=== PATIENT | male | born 1980 | race Caucasian/White ===

== ENCOUNTER 2022-04-07 21:50 | Emergency (ER) | payer OTHER, MEDICAID, SELFPAY ==
[2022-04-07 22:05] VITALS: BP 112/66; PULSE 125; RESP 20; TEMP 37.1; O2SAT 97
--- NOTE | 2022-04-07 22:41 | DI.RAD.S_ITS ---
PROCEDURE: XR CHEST 1V INDICATIONS: suspected sepsis TECHNIQUE: One view of the chest was acquired. COMPARISON: None. FINDINGS: Surgical changes and devices: None. Lungs and pleura: There are few linear opacities in the lung bases likely representing atelectasis. No definite focal consolidation. No pleural effusions or pneumothorax. Mediastinum: Mediastinal contours appear normal. Heart size is normal. Bones and chest wall: No suspicious bony lesions. Overlying soft tissues appear unremarkable. IMPRESSION: 1. Probable mild atelectasis in the lung bases. No definite acute cardiopulmonary disease. Dictated by: Eligio Garcia M.D. on 04/07/2022 at 23:45 Approved by: Eliigo Garcia M.D. on 04/07/2022 at 23:46
[2022-04-07 22:50] LABS: INR 1.4 (0.9-1.3); Prothrombin Time 15.4 SECONDS (10.1-12.7)
[2022-04-07 22:53] LABS: Add Manual Diff / Slide Review NO; Basophils Absolute Auto 0 /uL (0-100); Basophils Percent Auto 0.3 % (0-2); Eosinophils Absolute Auto 0 /uL (0-450); Eosinophils Percent Auto 0.2 % (2-4); Hemoglobin 11.1 g/dL (13.5-17.5); Lymphocytes Absolute Auto 2300 /uL (1100-4500); Lymphocytes Percent Auto 14.3 % (25-40); Mean Corpuscular HGB Conc 33.6 % (30-36); Mean Corpuscular Volume 86.2 fL (80-100); Monocytes Absolute Auto 1400 /uL (0-900); Monocytes Percent Auto 8.9 % (3-14); Neutrophils Absolute Auto 12400 /uL (1500-7000); Neutrophils Percent Auto 76.3 % (50-75); Platelet Count 478 X10^3/uL (150-400); Red Blood Cell Count 3.83 X10^6/uL (4.5-5.9); Red Cell Distribution Width 16.8 % (11.6-14.8); White Blood Cell Count 16.3 X10^3/uL (4.5-11.0)
[2022-04-07 22:54] LABS: Alanine Aminotransferase 14 IU/L (<50); Albumin Globulin Ratio 0.7 (1.0-2.8); Alkaline Phosphatase 72 U/L (38-126); Aspartate Aminotransferase 24 IU/L (17-59); BUN Creatinine Ratio 8.5 (6-22); Bilirubin Total 0.8 mg/dL (0.2-1.3); Blood Urea Nitrogen 16 mg/dL (9-20); Calcium 9.6 mg/dL (8.4-10.2); Carbon Dioxide 22 mmol/L (22-32); Chloride 101 mmol/L (98-107); Estimated Glomerular Filt Rate 45 mL/min (>60); Globulin 5.5 g/dL (1.7-4.1); Glucose 118 mg/dL (70-100); HEMOLYSIS < 15 (0-50); Lipase 266 U/L (23-300); Potassium 4.3 mmol/L (3.4-5.1); Sodium 133 mmol/L (137-145); Total Protein 9.5 g/dL (6.3-8.2)
[2022-04-07 22:55] LABS: Lactate (Lactic Acid) 1.1 mmol/L (0.7-2.1)
[2022-04-07 23:02] LABS: PTT Partial Thromboplastin Tim 19 SECONDS (26.4-36.2)
[2022-04-07 23:38] VITALS: PULSE 109; O2SAT 98
[2022-04-07 23:39] VITALS: BP 115/70; PULSE 108; O2SAT 99
[2022-04-07] MEDS: SODIUM CHLORIDE 0.9% 1,000 ML 1000 ML IV (23:41)
[2022-04-08] VITALS (20 sets, daily range): BP systolic 102–121; BP diastolic 57–69; PULSE 83–116; RESP 18; O2SAT 95–100
--- NOTE | 2022-04-08 00:04 | DI.CT.S_ITS ---
PROCEDURE: CT ABDOMEN PELVIS W CON INDICATIONS: IV contrast only/abdominal pain TECHNIQUE: After administration of intravenous contrast, axial sections acquired from the lung bases to the pubic symphysis. Coronal and sagittal reformats were performed. For radiation dose reduction, the following was used: automated exposure control, adjustment of mA and/or kV according to patient size. COMPARISON: None. FINDINGS: Image quality: Excellent. Lung bases: Bibasilar atelectasis. Small hiatal hernia. Heart: No significant findings. ABDOMEN: Liver: Normal size. Mild hepatic steatosis. Gallbladder: Unremarkable. Biliary ducts: Unremarkable. Pancreas: Unremarkable. Spleen: Unremarkable. Adrenal Glands: Unremarkable. Kidneys and Ureters: Normal size and symmetrical enhancement. Bilateral moderate and hydroureter, slightly more pronounced on the right side. No renal stones. Stomach and Bowel: There are sigmoid diverticula. There is focal short segmental marked thickening and pericolonic stranding in the distal sigmoid colon, most likely secondary to acute diverticulitis. There is a small extraluminal air and fluid collection superior to the urinary bladder measuring 3.0 x 3.2 cm just above the bladder dome, suspicious for diverticular perforation. Stomach, small bowel loops, and colon are normal in caliber. There is a large amount of stool in colon. Peritoneum: No abnormal intraperitoneal fluid. No free air. Ventral Wall: No hernias. Abdominal Nodes: No retroperitoneal or mesenteric adenopathy by size criteria. Vessels: Aorta and inferior vena cava are normal in size. PELVIS: Pelvic Organs: Unremarkable. Bladder: Bladder wall is thickened. There is a Del Rosario catheter. Air is seen within the lumen, suspicious for colovesical fistula. Pelvic Nodes: No enlarged lymph nodes. Miscellaneous: No hernias are seen. Bones: Unremarkable. IMPRESSION: 1. Short segment marked colonic wall thickening with associated inflammatory stranding involving the sigmoid colon. There are sigmoid diverticula. The CT findings are most compatible with acute diverticulitis. There is a 3.0 x 3.2 cm extraluminal air-fluid collection adjacent to the sigmoid colon and above the bladder dome, compatible with diverticular perforation and a diverticular abscess. 2. Marked wall thickening of the urinary bladder. Air collection within the bladder lumen is most likely secondary to a colovesical fistula. 3. After adequate treatment of acute illness, recommend colonoscopy for follow-up as perforated colon cancer could have a similar CT appearance. 4. Moderate hydronephrosis and hydroureter bilaterally. Obstruction is in the distal ureters at the level of inflammatory changes in pelvis secondary to acute diverticulitis. 5. A large amount of stool in colon. No significant discrepancy with the cage shift manager radiology preliminary report. Dictated by: Franci Mejia M.D. on 04/08/2022 at 8:02 Approved by: Franci Mejia M.D. on 04/08/2022 at 8:28
--- NOTE | 2022-04-08 00:05 | ED_ITS ---
HPI - Abdominal Pain <James Nye MD - Last Filed: 04/08/22 23:06> General Chief Complaint: Urogenital-Male Stated Complaint: BLOOD IN URINE HAS CATH WRECHING Time Seen by Provider: 04/07/22 23:09 Source: patient and family Mode of arrival: Ambulatory History of Present Illness HPI narrative: Patient here with parents. Complains of abdominal pain and blood in his [place] bag as well as vomiting. Patient was at 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 Also a person colon. He spent many days there on antibiotics. Plan was to do interval surgery after antibiotics were completed which he did finish yesterday. Patient states urination has been doing well. However does blood in his [place] bag today. That is new. No fever chills. Does complain of mild abdominal discomfort. Patient and family state he does not feel nearly as bad as he did when he was admitted at [facility]. Patient and family state that urology was involved for possible ureteral stents Related Data Previous Rx's Medication Instructions Recorded cefdinir 300 mg capsule 300 mg PO BID #20 caps 04/08/22 metronidazole 500 mg tablet 500 mg PO TID #30 tabs 04/08/22 Allergies Allergy/AdvReac Type Severity Reaction Status Date / Time No Known Drug Allergies Allergy Verified 04/07/22 22:12 Review of Systems <James Nye MD - Last Filed: 04/08/22 23:06> Review of Systems Narrative: GENERAL: Denies chills, fatigue, malaise, fever, sweats. HEENT: Denies sinus pain, ear pain, sore throat RESPIRATORY: Denies dyspnea, cough CARDIOVASCULAR: Denies chest pain, palpitations GASTROINTESTINAL: Positive for nausea, vomiting, abdominal pain : Denies dysuria, frequency, positive for hematuria MUSCULOSKELETAL: denies muscle or bony pain SKIN: Denies rash, skin lesions NEUROLOGIC: Denies weakness, numbness ROS Unobtainable: All systems reviewed & are unremarkable except as noted in HPI and below Exam <James Nye MD - Last Filed: 04/08/22 23:06> Narrative Exam Narrative: GENERAL: in no distress, not toxic not dyspneic HEAD: Normocephalic. EYES: Pupils equal round No scleral icterus. ENT: Mucous membranes moist. NECK: Trachea midline. CARDIOVASCULAR: Regular rate and rhythm without murmurs RESPIRATORY: Clear to auscultation. Breath sounds equal bilaterally. No wheezes, rales, or rhonchi. GASTROINTESTINAL: Abdomen soft, mild diffuse tenderness, bowel sounds present. No peritoneal signs. [place] bag does show dark tea-colored urine. There is some sediment in there EXTREMITIES: No gross deformities. BACK: No flank tenderness. NEURO: AOx4. SKIN: Warm and dry PSYCH: Not anxious, is cooperative Initial Vital Signs Initial Vital Signs: Vital Signs Temperature 98.7 F 04/07/22 22:05 Pulse Rate 125 H 04/07/22 22:05 Respiratory Rate 20 04/07/22 22:05 Blood Pressure 112/66 04/07/22 22:05 Pulse Oximetry 97 04/07/22 22:05 Oxygen Delivery Method 04/07/22 22:05 <Sera Love DO - Last Filed: 04/11/22 08:35> Initial Vital Signs Initial Vital Signs: Vital Signs Temperature 98.7 F 04/07/22 22:05 Pulse Rate 125 H 04/07/22 22:05 Respiratory Rate 20 04/07/22 22:05 Blood Pressure 112/66 04/07/22 22:05 Pulse Oximetry 97 04/07/22 22:05 Oxygen Delivery Method 04/07/22 22:05 Course <James Nye MD - Last Filed: 04/08/22 23:06> Course Course Narrative: No new issues during course of stay April 08, 2022 at 7:[address] Love, awaiting bed availability for [facility] for continuity of care as well with for Interventional Radiology. Patient is receiving Zosyn. Decision to Admit Date: 04/08/22 Decision to Admit time: 02:47 Orders Ordered: Discontinued Medications Sodium Chloride (Normal Saline 0.9%) 1,000 mls @ 1,000 mls/hr IV BOLUS ONE Stop: 04/07/22 23:40 Last Infusion: 04/08/22 00:50 Dose: 0 mls/hr Documented By: Admin: 04/07/22 23:41 Dose: 1,000 mls/hr Documented By: TUNG Piperacillin Sod/Tazobactam (Sod 4.5 gm/ Sodium Chloride) 100 mls @ 200 mls/hr IV NOW ONE Stop: 04/08/22 02:48 Last Infusion: 04/08/22 04:55 Dose: 0 mls/hr Documented By: Admin: 04/08/22 04:08 Dose: 200 mls/hr Documented By: JUNIOR Piperacillin Sod/Tazobactam (Sod 3.375 gm/ Sodium Chloride) 100 mls @ 25 mls/hr IV Q8H ALONZO Last Admin: 04/08/22 17:12 Dose: Not Given Documented By: Infusion: 04/08/22 12:47 Dose: 0 mls/hr Documented By: Admin: 04/08/22 08:52 Dose: 25 mls/hr Documented By: LOLY Sodium Chloride (Normal Saline 0.9%) 1,000 mls @ 150 mls/hr IV CONT [facility] Last Infusion: 04/08/22 17:13 Dose: 0 mls/hr Documented By: Admin: 04/08/22 12:57 Dose: 150 mls/hr Documented By: AMY Ondansetron HCl (Ondansetron 4 Mg/2 Ml Inj) 4 mg IV NOW ONE Stop: 04/08/22 02:47 Last Admin: 04/08/22 04:07 Dose: 4 mg Documented By: JUNIOR Reevaluation(s) Reevaluation #1: Reviewed results with patient and family. Understand they will need to be transferred and possibly back to [facility] or admitted here. Time: 02:49 Reevaluation #2: Inform patient and father. Likely bed not available till tomorrow afternoon. They understand reason for continuity of care but also we do not have I nterventional Radiology. Time: 04:50 Consultations Consultation #1: Spoke with general surgery with [facility]. Dr. Figueroa. At this time it would be appropriate for patient to be transferred to [facility]. Would need Interventional Radiology to try to drain the abscess. Also for co ntinuity of care Time: 03:01 Vital Signs Vital signs: Vital Signs - 8 hr 04/08/22 15:30 04/08/22 16:00 04/08/22 16:00 Pulse Rate 91 H 85 Blood Pressure 105/65 Pulse Oximetry 100 99 04/08/22 16:30 Pulse Rate 91 H Blood Pressure Pulse Oximetry 100 <Sera Love DO - Last Filed: 04/11/22 08:35> Orders Ordered: Discontinued Medications Sodium Chloride (Normal Saline 0.9%) 1,000 mls @ 1,000 mls/hr IV BOLUS ONE Stop: 04/07/22 23:40 Last Infusion: 04/08/22 00:50 Dose: 0 mls/hr Documented By: Admin: 04/07/22 23:41 Dose: 1,000 mls/hr Documented By: TUNG Piperacillin Sod/Tazobactam (Sod 4.5 gm/ Sodium Chloride) 100 mls @ 200 mls/hr IV NOW ONE Stop: 04/08/22 02:48 Last Infusion: 04/08/22 04:55 Dose: 0 mls/hr Documented By: Admin: 04/08/22 04:08 Dose: 200 mls/hr Documented By: JUNIOR Piperacillin Sod/Tazobactam (Sod 3.375 gm/ Sodium Chloride) 100 mls @ 25 mls/hr IV Q8H ALONZO Last Admin: 04/08/22 17:12 Dose: Not Given Documented By: Infusion: 04/08/22 12:47 Dose: 0 mls/hr Documented By: Admin: 04/08/22 08:52 Dose: 25 mls/hr Documented By: LOLY Sodium Chloride (Normal Saline 0.9%) 1,000 mls @ 150 mls/hr IV CONT ALONZO Last Infusion: 04/08/22 17:13 Dose: 0 mls/hr Documented By: Admin: 04/08/22 12:57 Dose: 150 mls/hr Documented By: AMY Ondansetron HCl (Ondansetron 4 Mg/2 Ml Inj) 4 mg IV NOW ONE Stop: 04/08/22 02:47 Last Admin: 04/08/22 04:07 Dose: 4 mg Documented By: JUNIOR Consultations Consultation #1: Spoke with general surgery with [facility]. Dr. Figueroa. At this time it would be appropriate for patient to be transferred to [facility]. Would need Interventional Radiology to try to drain the abscess. Also for continuity of care Consultation #2: Dr. Flood, general surgery at [facility]. Reviewed patient's finding she has a known abscess and is apparently stable based on verbal review of our imaging here today. She states plan was for outpatient follow-up, colonoscopy intake down but patient was to continue on antibiotics and is seeing Infectious Disease. We discussed he is completed his oral antibiotics and she asked that we touch base with Infectious Disease if patient is stabilizing in terms of his labs and clinical exam and is passing bowel movements and does not appear to be obstructed could discharge home from her perspective to follow up and is supposed to be seen in the next week in the office. She is unsure if the family has made an appointment but that was the goal for her. Time: 14:24 Consultation #3: Dr. Irwin, infectious disease at [place]. Discussed states the long-term patient really just need surgical treatment. He would feel appropriate to resta rt the cefdinir and Flagyl at prior dosage. We discussed patient does have an appointment this week with the general surgeon with plan for surgical treatment. Vital Signs Vital signs: Vital Signs - 8 hr 04/08/22 15:30 04/08/22 16:00 04/08/22 16:00 Pulse Rate 91 H 85 Blood Pressure 105/65 Pulse Oximetry 100 99 04/08/22 16:30 Pulse Rate 91 H Blood Pressure Pulse Oximetry 100 MDM - Abdominal Pain <James Nye MD - Last Filed: 04/08/22 23:06> Differential Diagnosis Differential diagnosis: Likely abdominal pain, acute appendicitis, calculus of kidney, constipation, small bowel obstruction and other (Abdominal abscess) Lab Data Result diagrams: 04/08/22 09:17 04/08/22 09:17 Labs: Lab Results 04/07/22 04/07/22 04/07/22 Range/Units 22:30 22:30 22:30 WBC 16.3 H (4.5-11.0) X10^3/uL RBC 3.83 L (4.5-5.9) X10^6/uL Hgb 11.1 L (13.5-17.5) g/dL Hct 33.0 L (41-53) % MCV 86.2 (80-100) fL MCH 29.0 (26-34) PG MCHC 33.6 (30-36) % RDW 16.8 H (11.6-14.8) % Plt Count 478 H (150-400) X10^3/uL Neut % (Auto) 76.3 H (50-75) % Lymph % (Auto) 14.3 L (25-40) % [place] % (Auto) 8.9 (3-14) % Eos % (Auto) 0.2 L (2-4) % Baso % (Auto) 0.3 (0-2) % Neut # (Auto) 73156 H (6994-8659) /uL Lymph # (Auto) 2300 (0914-0837) /uL [place] # (Auto) 1400 H (0-900) /uL Eos # (Auto) 0 (0-450) /uL Baso # (Auto) 0 (0-100) /uL PT 15.4 H (10.1-12.7) SECONDS INR 1.4 H (0.9-1.3) APTT (26.4-36.2) SECONDS Sodium 133 L (137-145) mmol/L Potassium 4.3 (3.4-5.1) mmol/L Chloride 101 (98-107) mmol/L Carbon Dioxide 22 (22-32) mmol/L BUN 16 (9-20) mg/dL Creatinine 1.89 H (0.66-1.25) mg/dL Estimated GFR 45 L (>60) mL/min BUN/Creatinine Ratio 8.5 (6-22) Glucose 118 H (70-100) mg/dL Lactate (0.7-2.1) mmol/L Calcium 9.6 (8.4-10.2) mg/dL Total Bilirubin 0.8 (0.2-1.3) mg/dL AST 24 (17-59) IU/L ALT 14 (<50) IU/L Alkaline Phosphatase 72 (38-126) U/L Total Protein 9.5 H (6.3-8.2) g/dL Albumin 4.0 (3.5-5.0) g/dL Globulin 5.5 H (1.7-4.1) g/dL Albumin/Globulin Ratio 0.7 L (1.0-2.8) Lipase 266 (23-300) U/L Procalcitonin 0.40 (<0.5) ng/mL Urine Color Urine Appearance Urine pH (4.5-8.0) Ur Specific [place] (1.000-1.035) Urine Protein (Negative) Urine Glucose (UA) (Negative) g/dL Urine Ketones (NEGATIVE) Urine Occult Blood (Negative) Urine Nitrate (Negative) Urine Bilirubin (NEGATIVE) Urine Urobilinogen (0.2) E.U./dL Ur Leukocyte Esterase (NEGATIVE) Urine RBC (0-5/HPF) Urine WBC (0-5/HPF) Ur Squamous Epith Cells (0-5/HPF) Urine Bacteria (None) Urine Yeast (None) Ur Culture Indicated? SARS-CoV-2 (PCR) (Negative) 04/07/22 04/07/22 04/07/22 Range/Units 22:30 22:30 23:39 WBC (4.5-11.0) X10^3/uL RBC (4.5-5.9) X10^6/uL Hgb (13.5-17.5) g/dL Hct (41-53) % MCV (80-100) fL MCH (26-34) PG MCHC (30-36) % RDW (11.6-14.8) % Plt Count (150-400) X10^3/uL Neut % (Auto) (50-75) % Lymph % (Auto) (25-40) % [place] % (Auto) (3-14) % Eos % (Auto) (2-4) % Baso % (Auto) (0-2) % Neut # (Auto) (3179-4693) /uL Lymph # (Auto) (1463-6572) /uL [place] # (Auto) (0-900) /uL Eos # (Auto) (0-450) /uL Baso # (Auto) (0-100) /uL PT (10.1-12.7) SECONDS INR (0.9-1.3) APTT 19 L (26.4-36.2) SECONDS Sodium (137-145) mmol/L Potassium (3.4-5.1) mmol/L Chloride (98-107) mmol/L Carbon Dioxide (22-32) mmol/L BUN (9-20) mg/dL Creatinine (0.66-1.25) mg/dL Estimated GFR (>60) mL/min BUN/Creatinine Ratio (6-22) Glucose (70-100) mg/dL Lactate 1.1 (0.7-2.1) mmol/L Calcium (8.4-10.2) mg/dL Total Bilirubin (0.2-1.3) mg/dL AST (17-59) IU/L ALT (<50) IU/L Alkaline Phosphatase (38-126) U/L Total Protein (6.3-8.2) g/dL Albumin (3.5-5.0) g/dL Globulin (1.7-4.1) g/dL Albumin/Globulin Ratio (1.0-2.8) Lipase (23-300) U/L Procalcitonin (<0.5) ng/mL Urine Color Brown Urine Appearance Turbid Urine pH 6.5 (4.5-8.0) Ur Specific [place] <=1.005 (1.000-1.035) Urine Protein 3+ H (Negative) Urine Glucose (UA) Negative (Negative) g/dL Urine Ketones Negative (NEGATIVE) Urine Occult Blood 3+ H (Negative) Urine Nitrate Positive H (Negative) Urine Bilirubin Negative (NEGATIVE) Urine Urobilinogen 1.0 (0.2) E.U./dL Ur Leukocyte Esterase 3+ H (NEGATIVE) Urine RBC 30-100/hpf H (0-5/HPF) Urine WBC >100/hpf H (0-5/HPF) Ur Squamous Epith Cells 0-1 /hpf (0-5/HPF) Urine Bacteria Many (>30) H (None) Urine Yeast 1-5/hpf H (None) Ur Culture Indicated? Specimen cultured SARS-CoV-2 (PCR) (Negative) 04/08/22 04/08/22 04/08/22 Range/Units 04:25 09:17 09:17 WBC 11.0 (4.5-11.0) X10^3/uL RBC 3.31 L (4.5-5.9) X10^6/uL Hgb 9.9 L (13.5-17.5) g/dL Hct 28.7 L (41-53) % MCV 86.7 (80-100) fL MCH 30.0 (26-34) PG MCHC 34.5 (30-36) % RDW 16.3 H (11.6-14.8) % Plt Count 370 (150-400) X10^3/uL Neut % (Auto) 71.6 (50-75) % Lymph % (Auto) 17.5 L (25-40) % [place] % (Auto) 10.2 (3-14) % Eos % (Auto) 0.4 L (2-4) % Baso % (Auto) 0.3 (0-2) % Neut # (Auto) 7900 H (2551-0466) /uL Lymph # (Auto) 1900 (8105-9063) /uL [place] # (Auto) 1100 H (0-900) /uL Eos # (Auto) 0 (0-450) /uL Baso # (Auto) 0 (0-100) /uL PT (10.1-12.7) SECONDS INR (0.9-1.3) APTT (26.4-36.2) SECONDS Sodium 134 L (137-145) mmol/L Potassium 4.1 (3.4-5.1) mmol/L Chloride 102 (98-107) mmol/L Carbon Dioxide 25 (22-32) mmol/L BUN 16 (9-20) mg/dL Creatinine 1.92 H (0.66-1.25) mg/dL Estimated GFR 44 L (>60) mL/min BUN/Creatinine Ratio 8.3 (6-22) Glucose 104 H (70-100) mg/dL Lactate (0.7-2.1) mmol/L Calcium 9.1 (8.4-10.2) mg/dL Total Bilirubin (0.2-1.3) mg/dL AST (17-59) IU/L ALT (<50) IU/L Alkaline Phosphatase (38-126) U/L Total Protein (6.3-8.2) g/dL Albumin (3.5-5.0) g/dL Globulin (1.7-4.1) g/dL Albumin/Globulin Ratio (1.0-2.8) Lipase (23-300) U/L Procalcitonin (<0.5) ng/mL Urine Color Urine Appearance Urine pH (4.5-8.0) Ur Specific [place] (1.000-1.035) Urine Protein (Negative) Urine Glucose (UA) (Negative) g/dL Urine Ketones (NEGATIVE) Urine Occult Blood (Negative) Urine Nitrate (Negative) Urine Bilirubin (NEGATIVE) Urine Urobilinogen (0.2) E.U./dL Ur Leukocyte Esterase (NEGATIVE) Urine RBC (0-5/HPF) Urine WBC (0-5/HPF) Ur Squamous Epith Cells (0-5/HPF) Urine Bacteria (None) Urine Yeast (None) Ur Culture Indicated? SARS-CoV-2 (PCR) Negative (Negative) Imaging Data CT scan - abdomen/pelvis: Radiologist's Impression: Marked thickening of the sigmoid colon wall with small contain adjacent perforation/abscess and possible fistula to the urinary bladder. No high-grade obstruction of the colon. There is bilateral hydroureteronephrosis appears to be secondary to the same process <Sera Love, DO - Last Filed: 04/11/22 08:35> Lab Data Labs: Lab Results 04/07/22 04/07/22 04/07/22 Range/Units 22:30 22:30 22:30 WBC 16.3 H (4.5-11.0) X10^3/uL RBC 3.83 L (4.5-5.9) X10^6/uL Hgb 11.1 L (13.5-17.5) g/dL Hct 33.0 L (41-53) % MCV 86.2 (80-100) fL MCH 29.0 (26-34) PG MCHC 33.6 (30-36) % RDW 16.8 H (11.6-14.8) % Plt Count 478 H (150-400) X10^3/uL Neut % (Auto) 76.3 H (50-75) % Lymph % (Auto) 14.3 L (25-40) % [place] % (Auto) 8.9 (3-14) % Eos % (Auto) 0.2 L (2-4) % Baso % (Auto) 0.3 (0-2) % Neut # (Auto) 93094 H (5102-9003) /uL Lymph # (Auto) 2300 (0540-6185) /uL [place] # (Auto) 1400 H (0-900) /uL Eos # (Auto) 0 (0-450) /uL Baso # (Auto) 0 (0-100) /uL PT 15.4 H (10.1-12.7) SECONDS INR 1.4 H (0.9-1.3) APTT (26.4-36.2) SECONDS Sodium 133 L (137-145) mmol/L Potassium 4.3 (3.4-5.1) mmol/L Chloride 101 (98-107) mmol/L Carbon Dioxide 22 (22-32) mmol/L BUN 16 (9-20) mg/dL Creatinine 1.89 H (0.66-1.25) mg/dL Estimated GFR 45 L (>60) mL/min BUN/Creatinine Ratio 8.5 (6-22) Glucose 118 H (70-100) mg/dL Lactate (0.7-2.1) mmol/L Calcium 9.6 (8.4-10.2) mg/dL Total Bilirubin 0.8 (0.2-1.3) mg/dL AST 24 (17-59) IU/L ALT 14 (<50) IU/L Alkaline Phosphatase 72 (38-126) U/L Total Protein 9.5 H (6.3-8.2) g/dL Albumin 4.0 (3.5-5.0) g/dL Globulin 5.5 H (1.7-4.1) g/dL Albumin/Globulin Ratio 0.7 L (1.0-2.8) Lipase 266 (23-300) U/L Procalcitonin 0.40 (<0.5) ng/mL Urine Color Urine Appearance Urine pH (4.5-8.0) Ur Specific [place] (1.000-1.035) Urine Protein (Negative) Urine Glucose (UA) (Negative) g/dL Urine Ketones (NEGATIVE) Urine Occult Blood (Negative) Urine Nitrate (Negative) Urine Bilirubin (NEGATIVE) Urine Urobilinogen (0.2) E.U./dL Ur Leukocyte Esterase (NEGATIVE) Urine RBC (0-5/HPF) Urine WBC (0-5/HPF) Ur Squamous Epith Cells (0-5/HPF) Urine Bacteria (None) Urine Yeast (None) Ur Culture Indicated? SARS-CoV-2 (PCR) (Negative) 04/07/22 04/07/22 04/07/22 Range/Units 22:30 22:30 23:39 WBC (4.5-11.0) X10^3/uL RBC (4.5-5.9) X10^6/uL Hgb (13.5-17.5) g/dL Hct (41-53) % MCV (80-100) fL MCH (26-34) PG MCHC (30-36) % RDW (11.6-14.8) % Plt Count (150-400) X10^3/uL Neut % (Auto) (50-75) % Lymph % (Auto) (25-40) % [place] % (Auto) (3-14) % Eos % (Auto) (2-4) % Baso % (Auto) (0-2) % Neut # (Auto) (0632-8764) /uL Lymph # (Auto) (9606-2778) /uL [place] # (Auto) (0-900) /uL Eos # (Auto) (0-450) /uL Baso # (Auto) (0-100) /uL PT (10.1-12.7) SECONDS INR (0.9-1.3) APTT 19 L (26.4-36.2) SECONDS Sodium (137-145) mmol/L Potassium (3.4-5.1) mmol/L Chloride (98-107) mmol/L Carbon Dioxide (22-32) mmol/L BUN (9-20) mg/dL Creatinine (0.66-1.25) mg/dL Estimated GFR (>60) mL/min BUN/Creatinine Ratio (6-22) Glucose (70-100) mg/dL Lactate 1.1 (0.7-2.1) mmol/L Calcium (8.4-10.2) mg/dL Total Bilirubin (0.2-1.3) mg/dL AST (17-59) IU/L ALT (<50) IU/L Alkaline Phosphatase (38-126) U/L Total Protein (6.3-8.2) g/dL Albumin (3.5-5.0) g/dL Globulin (1.7-4.1) g/dL Albumin/Globulin Ratio (1.0-2.8) Lipase (23-300) U/L Procalcitonin (<0.5) ng/mL Urine Color Brown Urine Appearance Turbid Urine pH 6.5 (4.5-8.0) Ur Specific [place] <=1.005 (1.000-1.035) Urine Protein 3+ H (Negative) Urine Glucose (UA) Negative (Negative) g/dL Urine Ketones Negative (NEGATIVE) Urine Occult Blood 3+ H (Negative) Urine Nitrate Positive H (Negative) Urine Bilirubin Negative (NEGATIVE) Urine Urobilinogen 1.0 (0.2) E.U./dL Ur Leukocyte Esterase 3+ H (NEGATIVE) Urine RBC 30-100/hpf H (0-5/HPF) Urine WBC >100/hpf H (0-5/HPF) Ur Squamous Epith Cells 0-1 /hpf (0-5/HPF) Urine Bacteria Many (>30) H (None) Urine Yeast 1-5/hpf H (None) Ur Culture Indicated? Specimen cultured SARS-CoV-2 (PCR) (Negative) 04/08/22 04/08/22 04/08/22 Range/Units 04:25 09:17 09:17 WBC 11.0 (4.5-11.0) X10^3/uL RBC 3.31 L (4.5-5.9) X10^6/uL Hgb 9.9 L (13.5-17.5) g/dL Hct 28.7 L (41-53) % MCV 86.7 (80-100) fL MCH 30.0 (26-34) PG MCHC 34.5 (30-36) % RDW 16.3 H (11.6-14.8) % Plt Count 370 (150-400) X10^3/uL Neut % (Auto) 71.6 (50-75) % Lymph % (Auto) 17.5 L (25-40) % [place] % (Auto) 10.2 (3-14) % Eos % (Auto) 0.4 L (2-4) % Baso % (Auto) 0.3 (0-2) % Neut # (Auto) 7900 H (2694-0800) /uL Lymph # (Auto) 1900 (1877-8035) /uL [place] # (Auto) 1100 H (0-900) /uL Eos # (Auto) 0 (0-450) /uL Baso # (Auto) 0 (0-100) /uL PT (10.1-12.7) SECONDS INR (0.9-1.3) APTT (26.4-36.2) SECONDS Sodium 134 L (137-145) mmol/L Potassium 4.1 (3.4-5.1) mmol/L Chloride 102 (98-107) mmol/L Carbon Dioxide 25 (22-32) mmol/L BUN 16 (9-20) mg/dL Creatinine 1.92 H (0.66-1.25) mg/dL Estimated GFR 44 L (>60) mL/min BUN/Creatinine Ratio 8.3 (6-22) Glucose 104 H (70-100) mg/dL Lactate (0.7-2.1) mmol/L Calcium 9.1 (8.4-10.2) mg/dL Total Bilirubin (0.2-1.3) mg/dL AST (17-59) IU/L ALT (<50) IU/L Alkaline Phosphatase (38-126) U/L Total Protein (6.3-8.2) g/dL Albumin (3.5-5.0) g/dL Globulin (1.7-4.1) g/dL Albumin/Globulin Ratio (1.0-2.8) Lipase (23-300) U/L Procalcitonin (<0.5) ng/mL Urine Color Urine Appearance Urine pH (4.5-8.0) Ur Specific [place] (1.000-1.035) Urine Protein (Negative) Urine Glucose (UA) (Negative) g/dL Urine Ketones (NEGATIVE) Urine Occult Blood (Negative) Urine Nitrate (Negative) Urine Bilirubin (NEGATIVE) Urine Urobilinogen (0.2) E.U./dL Ur Leukocyte Esterase (NEGATIVE) Urine RBC (0-5/HPF) Urine WBC (0-5/HPF) Ur Squamous Epith Cells (0-5/HPF) Urine Bacteria (None) Urine Yeast (None) Ur Culture Indicated? 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. Patient was to have completed antibiotics to follow-up for surgical repair. Patient presents with abdominal pain blood in his [place] bag as well as vomiting. Patient case was discussed with [facility] as patient has developed an abscess in the interim they were hopeful for patient to return there for continuity of care but on recontact this morning they do not have any bed availability. Our general surgeons were also contacted we do not have IR available and patient would need this necessitating transfer. Patient was seen and evaluated independently by myself. Has a leukocytosis overnight of 16, normal lactate, leftward shift, creatinine is 1.89 do not have priors available for comparison electrolytes otherwise normal except for sodium of 133 and normal LFTs, procalcitonin is negative. Patient has blood and urine cultures pending. COVID swab is negative. CT abdomen pelvis shows colonic vesicular fistula but also new development of abscess. Patient has Zosyn ordered at this time, repeat a.m. labs are pending. Patient was seen independently evaluated by myself. Throughout the day patient's heart rate has been improved, he occasionally has soft blood pressures, he has been afebrile with improved white count, patient's cultures so far have not become positive in terms of blood cultures. Reviewed with Dr. Flood who is his general surgeon through [facility]. He has not had surgery yet but has an appointment on this week to follow-up and planned surgical revision for his colonic vesicular fistula. After review abscess was present before discharge at the hospital has maintained size and been stable no decreased but no increase in size. We reviewed that patient did meet septic criteria last night does not seem to at this point. They asked that we speak with Infectious Disease but from their perspective patient could be discharged home to be seen on . Spoke with Infectious Disease, Dr. Irwin, also discussed the case, current findings and he states we can restart oral antibiotics including the cefdinir 200 mg b.i.d. and Flagyl 500 mg t.i.d. with plan for short-term outpatient follow-up this . Discussed with patient and family they feel comfortable with this plan. They expressed her understanding and understands that we can continue to search for placement but they would prefer to return home at this time. They also note patient has an a ppointment on Thursday to have ureteral stent placed and patient's CT imaging was copied onto discs and so that he can have these with him. Discharge Plan Departure Patient Disposition: Home Clinical Impression: [place]-vesical fistula, Intra-abdominal abscess, Hydroureter Activity Restrictions/Additional Instructions: Your abscess and fistula appears stable today when I discussed your findings with your general surgeon Dr. Flood. Please follow-up at your appointment on with Dr. Flood regarding having her future surgery as well as your appointment on Thursday for ureteral stent to be placed. Your images are included on discs please take these 2 appointments to share with your treatment team. I also spoke with Dr. Irwin from Infectious Disease he asked us to restart her antibiotic course. Prescription sent to [facility] in [place]. You can certainly have recurrence or worsening of your infection so please return or go to the nearest hospital if you have fevers are feeling worse, having persistent vomiting increasing abdominal pain, unable to have bowel movements or having black or bloody stools. Prescriptions: New cefdinir 300 mg capsule 300 mg PO BID Qty: 20 0RF metronidazole 500 mg tablet 500 mg PO TID Qty: 30 0RF Visit Report Forms: Patient Portal/API
[2022-04-08 01:07] LABS: Appearance Urine UA TURBID; Bilirubin Urine UA NEGATIVE (NEGATIVE); Glucose Urine UA NEGATIVE (Negative); Ketones Urine UA NEGATIVE (NEGATIVE); Leukocyte Esterase Urine UA 3+ (NEGATIVE); Nitrite Urine UA POSITIVE (Negative); Occult Blood Urine UA 3+ (Negative); Protein Urine UA 3+ (Negative); Specific Gravity Urine UA <=1.005 (1.000-1.035); pH Urine UA 6.5 (4.5-8.0)
[2022-04-08 01:08] LABS: Bacteria Urine Many (>30); Color Urine UA BROWN; RBC Urine 30-100/HPF (0-5/HPF); Squamous Epithelial Cell Urine 0-1 /HPF (0-5/HPF); WBC Urine >100/HPF (0-5/HPF)
[2022-04-08 01:10] LABS: Culture Indicated Urine Specimen Cultured
[2022-04-08] MEDS: ONDANSETRON 4 MG/2 ML INJ IV (04:07)
[2022-04-08] MEDS: PIPERACILLIN/TAZO 4.5 GM in SODIUM CHLORIDE 0.9% 100 ML IV (04:08)
[2022-04-08 04:49] LABS: COVID19 -Nasal RAPID Negative (Negative)
[2022-04-08] MEDS: PIPERACILLIN/TAZO 3.375 GM in SODIUM CHLORIDE 0.9% 100 ML IV (08:52)
[2022-04-08 09:52] LABS: Add Manual Diff / Slide Review NO; Basophils Absolute Auto 0 /uL (0-100); Basophils Percent Auto 0.3 % (0-2); Eosinophils Absolute Auto 0 /uL (0-450); Eosinophils Percent Auto 0.4 % (2-4); Hematocrit 28.7 % (41-53); Hemoglobin 9.9 g/dL (13.5-17.5); Lymphocytes Absolute Auto 1900 /uL (1100-4500); Lymphocytes Percent Auto 17.5 % (25-40); Mean Corpuscular HGB Conc 34.5 % (30-36); Mean Corpuscular Volume 86.7 fL (80-100); Monocytes Absolute Auto 1100 /uL (0-900); Monocytes Percent Auto 10.2 % (3-14); Neutrophils Absolute Auto 7900 /uL (1500-7000); Neutrophils Percent Auto 71.6 % (50-75); Platelet Count 370 X10^3/uL (150-400); Red Blood Cell Count 3.31 X10^6/uL (4.5-5.9); Red Cell Distribution Width 16.3 % (11.6-14.8)
[2022-04-08 10:02] LABS: BUN Creatinine Ratio 8.3 (6-22); Blood Urea Nitrogen 16 mg/dL (9-20); Calcium 9.1 mg/dL (8.4-10.2); Carbon Dioxide 25 mmol/L (22-32); Chloride 102 mmol/L (98-107); Estimated Glomerular Filt Rate 44 mL/min (>60); Glucose 104 mg/dL (70-100); HEMOLYSIS < 15 (0-50); Potassium 4.1 mmol/L (3.4-5.1); Sodium 134 mmol/L (137-145)
--- NOTE | 2022-04-08 10:28 | PC.NURSE ---
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
--- NOTE | 2022-04-08 10:42 | PC.NURSE ---
waitlist at [facility], [facility], , [facility], [facility]. images pushed to these. No to waitlist @ , [place], [place].
[2022-04-08] MEDS: SODIUM CHLORIDE 0.9% 1,000 ML 150 ML IV (12:57)
== END 2022-04-08 17:20 | disposition home or self-care (01) ==
PROVIDERS: Emergency Medicine; Emergency Provider Emergency Medicine
DX: N32.1 Vesicointestinal fistula (principal); K65.1 Peritoneal abscess; N13.4 Hydroureter; Z20.822 Contact with and (suspected) exposure to COVID-19
CPT/HCPCS: 36415; 71045; 74177; 80048; 80053; 81001; 83605; 83690; 84145; 85025; 85610; 85730; 87040; 87077; 87086; 87186; 87635; 96361; 96365; 96375; 99284; C9803; J2405; J2543; Q9967

== ENCOUNTER 2023-01-16 16:15 | Emergency (ER) | payer OTHER, MEDICAID, SELFPAY ==
[2023-01-16] VITALS (10 sets, daily range): BP systolic 119–130; BP diastolic 80–85; PULSE 78–86; RESP 16; TEMP 36.6; O2SAT 98–100; BMI 30.7
--- NOTE | 2023-01-16 17:11 | DI.CT.S_ITS ---
PROCEDURE: CT KIDNEY URETER BLADDER (KUB) INDICATIONS: flank pain TECHNIQUE: Axial sections were acquired from the lung bases to the pubic symphysis. Coronal and sagittal reformats were performed. For radiation dose reduction, the following was used: automated exposure control, adjustment of mA and/or kV according to patient size. COMPARISON: [facility], CT, CT ABDOMEN PELVIS W CON, 04/08/2022, 1:38. FINDINGS: Image quality: Excellent. Lung bases: Unremarkable. Heart: No significant findings. URINARY: Right Kidney: No stones or hydronephrosis. Right Ureter: No hydroureter. Left Kidney: Nonobstructing stone fragments can be seen, as on series 2, image 36, with the largest fragment measuring 3 mm. There is moderate left-sided hydronephrosis. Left Ureter: Moderate left-sided hydroureter. There are a pair of nonobstructing stones seen within the distal left ureter, as on series 2, image 70 and on series 4, image 42, with the larger of the stones measuring 3 mm. Bladder: Normal wall thickness. No stones. ABDOMEN: Liver: Unremarkable. Gallbladder: Unremarkable. Biliary ducts: Unremarkable. Pancreas: Unremarkable. Spleen: Unremarkable. Incidental note is made of an accessory splenule along the hilum of the primary spleen. Adrenal Glands: Unremarkable. Stomach and Bowel: Distal colonic postop change is seen. There is a right lower quadrant ileostomy seen. A normal appendix is incidentally noted. No dilated loops of colon or small bowel can be seen. No significant stomach abnormality is seen. Peritoneum: No abnormal intraperitoneal fluid. No free air. Ventral Wall: No hernia. Prior postoperative change of the left anterior abdominal wall can be seen. Abdominal Nodes: No enlarged retroperitoneal or mesenteric lymph nodes. Vessels: Aorta and inferior vena cava are normal in size. PELVIS: Pelvic Organs: Unremarkable. Pelvic Nodes: Unremarkable. Miscellaneous: There is a fat containing left inguinal hernia. Bones: Unremarkable. IMPRESSION: There is a pair of stones obstructing within the distal left ureter. Nonobstructing stone fragment seen within the left kidney. Bowel postoperative change with distal colon marilin and a right lower quadrant ileostomy. Additional findings: Accessory splenule Normal appendix Fat containing left inguinal hernia Dictated by: Saman Finch M.D. on 01/16/2023 at 16:36 Approved by: Saman Finch M.D. on 01/16/2023 at 16:41
[2023-01-16 17:26] LABS: Appearance Urine UA CLOUDY; Bilirubin Urine UA 1+ (NEGATIVE); Color Urine UA RED; Glucose Urine UA NEGATIVE (Negative); Ketones Urine UA NEGATIVE (NEGATIVE); Leukocyte Esterase Urine UA NEGATIVE (NEGATIVE); Nitrite Urine UA NEGATIVE (Negative); Occult Blood Urine UA 3+ (Negative); Protein Urine UA 3+ (Negative); Specific Gravity Urine UA 1.025 (1.000-1.035); Urobilinogen Urine UA 0.2 E.U./dL (0.2); pH Urine UA 5.5 (4.5-8.0)
[2023-01-16 17:30] LABS: Add Manual Diff / Slide Review NO; Bacteria Urine None Seen; Basophils Absolute Auto 0 /uL (0-100); Basophils Percent Auto 0.2 % (0-2); Culture Indicated Urine Specimen Cultured; Eosinophils Absolute Auto 200 /uL (0-450); Eosinophils Percent Auto 1.7 % (2-4); Hemoglobin 12.5 g/dL (13.5-17.5); Lymphocytes Absolute Auto 1700 /uL (1100-4500); Lymphocytes Percent Auto 16.5 % (25-40); Mean Corpuscular HGB Conc 33.8 % (30-36); Mean Corpuscular Hemoglobin 29.4 PG (26-34); Mean Corpuscular Volume 86.9 fL (80-100); Monocytes Absolute Auto 1400 /uL (0-900); Neutrophils Absolute Auto 7000 /uL (1500-7000); Neutrophils Percent Auto 67.6 % (50-75); Platelet Count 232 X10^3/uL (150-400); RBC Urine >100/HPF (0-5/HPF); Red Blood Cell Count 4.26 X10^6/uL (4.5-5.9); Red Cell Distribution Width 15.6 % (11.6-14.8); WBC Urine 5-10/HPF (0-5/HPF); White Blood Cell Count 10.3 X10^3/uL (4.5-11.0)
[2023-01-16 17:32] LABS: Ictotest Urine Negative (Negative)
[2023-01-16 18:03] LABS: Alanine Aminotransferase 35 IU/L (<50); Albumin 4.5 g/dL (3.5-5.0); Alkaline Phosphatase 74 U/L (38-126); Aspartate Aminotransferase 34 IU/L (17-59); BUN Creatinine Ratio 10.2 (6-22); Bilirubin Total 0.6 mg/dL (0.2-1.3); Blood Urea Nitrogen 19 mg/dL (9-20); Calcium 9.5 mg/dL (8.4-10.2); Carbon Dioxide 22 mmol/L (22-32); Chloride 102 mmol/L (98-107); Estimated Glomerular Filt Rate 46 mL/min (>60); Globulin 4.5 g/dL (1.7-4.1); Glucose 104 mg/dL (70-100); HEMOLYSIS < 15 (0-50); Lipase 244 U/L (23-300); Potassium 3.8 mmol/L (3.4-5.1); Sodium 135 mmol/L (137-145)
--- NOTE | 2023-01-16 19:14 | ED.BACK ---
HPI - Back Pain/Injury <Tori Brady PA-C - Last Filed: 01/16/23 21:48> General Chief Complaint: Back Pain/Injury Stated Complaint: lt side back and kidney pain/bloody urine Time Seen by Provider: 01/16/23 16:43 History of Present Illness HPI Narrative: this a 42-year-old male who presents with concern for left-sided flank pain since this morning. Patient states his pain was a 4/10, possibly higher than that early this morning, he has been having blood in his urine. Denies recent fevers or chills and states he has not had pain like this before. His family/caregiver who is here with him does state that he has a complicated history noting that he had a previous problem last summer and had to have a stent placed in his right ureter and is still following with Urology for this. Patient sees urologist Dr. Hendricks, at [facility]. Patient states he is not had nausea, vomiting, diarrhea, urgency frequency, difficulty urinating or other symptoms. Related Data Previous Rx's Medication Instructions Recorded cefdinir 300 mg capsule 300 mg PO BID #20 caps 04/08/22 metronidazole 500 mg tablet 500 mg PO TID #30 tabs 04/08/22 ciprofloxacin HCl 500 mg tablet 500 mg PO BID #14 tabs 04/11/22 (Cipro) hydrocodone 5 mg-acetaminophen 325 1 tab PO Q8H PRN pain 3 days #8 01/16/23 mg tablet tabs tamsulosin 0.4 mg capsule 0.4 mg PO DAILY 7 days #7 caps 01/16/23 Allergies Allergy/AdvReac Type Severity Reaction Status Date / Time No Known Drug Allergies Allergy Verified 04/07/22 22:12 Review of Systems <Tori Brady PA-C - Last Filed: 01/16/23 21:48> Review of Systems Narrative: See HPI Exam <Tori Brady PA-C - Last Filed: 01/16/23 21:48> Narrative Exam Narrative: GENERAL: [42] year old patient appears stated age. Well-developed patient, in mild distress. HEAD: Atraumatic. Normocephalic. EYES: Pupils equal round and reactive. Extraocular motions intact. No scleral icterus. No injection or drainage. ENT: Nose without bleeding, purulent drainage. Airway patent. NECK: Trachea midline. Non tender CARDIOVASCULAR: Regular rate and rhythm without murmurs, gallops, or rubs. RESPIRATORY: Clear to auscultation. Breath sounds equal bilaterally. No wheezes, rales, or rhonchi. GASTROINTESTINAL: Abdomen soft, protuberant, non-tender, nondistended, there is an ostomy present on the right, there is an ostomy scar on the left. There is a midline well-healed surgical scar, there is no CVA tenderness. EXTREMITIES: No edema or joint tenderness. BACK: Nontender without deformity or crepitance. No flank tenderness. NEURO: AOx3. SKIN: No rash or erythema of visible areas Initial Vital Signs Initial Vital Signs: Vital Signs Temperature 97.9 F 01/16/23 16:54 Pulse Rate 86 01/16/23 16:54 Respiratory Rate 16 01/16/23 16:54 Blood Pressure 120/84 01/16/23 16:54 Pulse Oximetry 99 01/16/23 16:54 Oxygen Delivery Method Room Air 01/16/23 16:54 <Delicia Portillo DO - Last Filed: 01/17/23 06:52> Initial Vital Signs Initial Vital Signs: Vital Signs Temperature 97.9 F 01/16/23 16:54 Pulse Rate 86 01/16/23 16:54 Respiratory Rate 16 01/16/23 16:54 Blood Pressure 120/84 01/16/23 16:54 Pulse Oximetry 99 01/16/23 16:54 Oxygen Delivery Method Room Air 01/16/23 16:54 Course <Tori Brady PA-C - Last Filed: 01/16/23 21:48> Course Course Narrative: Did consult attending physician Dr. Portillo regarding this patient noting his history, who feels reasonable to discharge on Flomax as planned with close follow-up with the patient's urologist. Did contact [facility] u[facility], and ultimately to speak with Dr. Loving who agrees with plan for patient to be discharged on Flomax and follow up with his primary urologist. 2049 Orders Ordered: Discontinued Medications Ketorolac Tromethamine (Ketorolac 30 Mg/Ml Vial) 15 mg IV NOW ONE Stop: 01/16/23 19:13 Last Admin: 01/16/23 19:20 Dose: 15 mg Documented By: Tamsulosin HCl (Tamsulosin 0.4 Mg Capsule) 0.4 mg PO NOW ONE Stop: 01/16/23 19:43 Last Admin: 01/16/23 19:50 Dose: 0.4 mg Documented By: Vital Signs Vital signs: Vital Signs - 8 hr 01/16/23 16:54 01/16/23 18:47 01/16/23 18:47 Temperature 97.9 F Pulse Rate 86 86 Respiratory Rate 16 Blood Pressure 120/84 128/81 Pulse Oximetry 99 100 Oxygen Delivery Method Room Air 01/16/23 19:00 01/16/23 19:00 01/16/23 19:15 Temperature Pulse Rate 80 82 Respiratory Rate Blood Pressure 128/82 Pulse Oximetry 100 100 Oxygen Delivery Method 01/16/23 19:30 01/16/23 19:30 01/16/23 19:45 Temperature Pulse Rate 78 83 Respiratory Rate Blood Pressure 130/85 Pulse Oximetry 100 100 Oxygen Delivery Method 01/16/23 20:00 01/16/23 20:00 01/16/23 20:15 Temperature Pulse Rate 79 80 Respiratory Rate Blood Pressure 129/84 Pulse Oximetry 100 98 Oxygen Delivery Method 01/16/23 20:30 01/16/23 20:30 01/16/23 20:45 Temperature Pulse Rate 82 79 Respiratory Rate Blood Pressure 119/80 Pulse Oximetry 99 99 Oxygen Delivery Method <Delicia Portillo DO - Last Filed: 01/17/23 06:52> Orders Ordered: Discontinued Medications Ketorolac Tromethamine (Ketorolac 30 Mg/Ml Vial) 15 mg IV NOW ONE Stop: 01/16/23 19:13 Last Admin: 01/16/23 19:20 Dose: 15 mg Documented By: Tamsulosin HCl (Tamsulosin 0.4 Mg Capsule) 0.4 mg PO NOW ONE Stop: 01/16/23 19:43 Last Admin: 01/16/23 19:50 Dose: 0.4 mg Documented By: Vital Signs Vital signs: Vital Signs - 8 hr 01/16/23 16:54 01/16/23 18:47 01/16/23 18:47 Temperature 97.9 F Pulse Rate 86 86 Respiratory Rate 16 Blood Pressure 120/84 128/81 Pulse Oximetry 99 100 Oxygen Delivery Method Room Air 01/16/23 19:00 01/16/23 19:00 01/16/23 19:15 Temperature Pulse Rate 80 82 Respiratory Rate Blood Pressure 128/82 Pulse Oximetry 100 100 Oxygen Delivery Method 01/16/23 19:30 01/16/23 19:30 01/16/23 19:45 Temperature Pulse Rate 78 83 Respiratory Rate Blood Pressure 130/85 Pulse Oximetry 100 100 Oxygen Delivery Method 01/16/23 20:00 01/16/23 20:00 01/16/23 20:15 Temperature Pulse Rate 79 80 Respiratory Rate Blood Pressure 129/84 Pulse Oximetry 100 98 Oxygen Delivery Method 01/16/23 20:30 01/16/23 20:30 01/16/23 20:45 Temperature Pulse Rate 82 79 Respiratory Rate Blood Pressure 119/80 Pulse Oximetry 99 99 Oxygen Delivery Method MDM - Back Pain/Injury <Tori Brady PA-C - Last Filed: 01/16/23 21:48> Differential Diagnosis Differential diagnosis: Likely renal colic, pyelonephritis and other (Ureterolithiasis, UTI) Medical Records Attestation: I reviewed the patient's medical records. Lab Data Attestation: I reviewed the patient's lab results. 01/16/23 17:00 01/16/23 17:00 Labs: Lab Results 01/16/23 01/16/23 01/16/23 Range/Units 17:00 17:00 17:00 WBC 10.3 (4.5-11.0) X10^3/uL RBC 4.26 L (4.5-5.9) X10^6/uL Hgb 12.5 L (13.5-17.5) g/dL Hct 37.0 L (41-53) % MCV 86.9 (80-100) fL MCH 29.4 (26-34) PG MCHC 33.8 (30-36) % RDW 15.6 H (11.6-14.8) % Plt Count 232 (150-400) X10^3/uL Neut % (Auto) 67.6 (50-75) % Lymph % (Auto) 16.5 L (25-40) % [place] % (Auto) 14.0 (3-14) % Eos % (Auto) 1.7 L (2-4) % Baso % (Auto) 0.2 (0-2) % Neut # (Auto) 7000 (1721-4299) /uL Lymph # (Auto) 1700 (3608-2638) /uL [place] # (Auto) 1400 H (0-900) /uL Eos # (Auto) 200 (0-450) /uL Baso # (Auto) 0 (0-100) /uL Sodium 135 L (137-145) mmol/L Potassium 3.8 (3.4-5.1) mmol/L Chloride 102 (98-107) mmol/L Carbon Dioxide 22 (22-32) mmol/L BUN 19 (9-20) mg/dL Creatinine 1.87 H (0.66-1.25) mg/dL Estimated GFR 46 L (>60) mL/min BUN/Creatinine Ratio 10.2 (6-22) Glucose 104 H (70-100) mg/dL Calcium 9.5 (8.4-10.2) mg/dL Total Bilirubin 0.6 (0.2-1.3) mg/dL AST 34 (17-59) IU/L ALT 35 (<50) IU/L Alkaline Phosphatase 74 (38-126) U/L Total Protein 9.0 H (6.3-8.2) g/dL Albumin 4.5 (3.5-5.0) g/dL Globulin 4.5 H (1.7-4.1) g/dL Albumin/Globulin Ratio 1.0 (1.0-2.8) Lipase 244 (23-300) U/L Urine Color Red Urine Appearance Cloudy Urine pH 5.5 (4.5-8.0) Ur Specific [place] 1.025 (1.000-1.035) Urine Protein 3+ H (Negative) Urine Glucose (UA) Negative (Negative) g/dL Urine Ketones Negative (NEGATIVE) Urine Occult Blood 3+ H (Negative) Urine Nitrate Negative (Negative) Urine Bilirubin 1+ H (NEGATIVE) Ur Bilirubin Confirm Negative (Negative) Urine Urobilinogen 0.2 (0.2) E.U./dL Ur Leukocyte Esterase Negative (NEGATIVE) Urine RBC >100/hpf H (0-5/HPF) Urine WBC 5-10/hpf H (0-5/HPF) Urine Bacteria None seen (None) Ur Culture Indicated? Specimen cultured Imaging Data CT scan - abdomen/pelvis: My Impression: Agree with Radiology interpretation Radiologist's Impression: [address] [address] [address] Scan Report Signed Patient: Yonatan Rojo MR#: [id number] : 1980 Acct:[id number] Age/Sex: 42 / M Date of Service: 01/16/23 Loc: ED Accession Number: [id number] ?? Procedure: CT kidney ureter bladder (KUB) Ordering Provider: Tori Brady P.A-C PROCEDURE:? CT KIDNEY URETER BLADDER (KUB) ? INDICATIONS:? flank pain ? TECHNIQUE:? Axial sections were acquired from the lung bases to the pubic symphysis.? Coronal and sagittal reformats were performed.? For radiation dose reduction, the following was used: ?automated exposure control, adjustment of mA and/or kV according to patient size.? ? COMPARISON:? [facility], CT, CT ABDOMEN PELVIS W [facility], 04/08/2022, 1:38. ? FINDINGS:? Image quality:? Excellent.? ? Lung bases:? Unremarkable.? ? Heart:? No significant findings. ? URINARY: Right Kidney: ? No stones or hydronephrosis.? Right Ureter:? No hydroureter.? ? Left Kidney:? Nonobstructing stone fragments can be seen, as on series 2, image 36, with the largest fragment measuring 3 mm.? There is moderate left-sided hydronephrosis.? Left Ureter:? Moderate left-sided hydroureter.? There are a pair of nonobstructing stones seen within the distal left ureter, as on series 2, image 70 and on series 4, image 42, with the larger of the stones measuring 3 mm.? ? Bladder:? Normal wall thickness. No stones. ? ? ? ABDOMEN: Liver:? Unremarkable.? ? Gallbladder:? Unremarkable.? ? Biliary ducts:? Unremarkable.? ? Pancreas:? Unremarkable.? ? Spleen:? Unremarkable.? ? Incidental note is made of an accessory splenule along the hilum of the primary spleen. Adrenal Glands:? Unremarkable.? ? ? Stomach and Bowel:? Distal colonic postop change is seen. There is a right lower quadrant ileostomy seen. A normal appendix is incidentally noted.? No dilated loops of colon or small bowel can be seen.? No significant stomach abnormality is seen. Peritoneum:? No abnormal intraperitoneal fluid.? No free air.? ? Ventral Wall: ? No hernia.? Prior postoperative change of the left anterior abdominal wall can be seen. Abdominal Nodes:? No enlarged retroperitoneal or mesenteric lymph nodes.? Vessels:? Aorta and inferior vena cava are normal in size.? ? PELVIS: Pelvic Organs:? Unremarkable.? ? Pelvic Nodes: Unremarkable. Miscellaneous:? There is a fat containing left inguinal hernia. ? Bones:? Unremarkable. ? IMPRESSION:? ? There is a pair of stones obstructing within the distal left ureter. ? Nonobstructing stone fragment seen within the left kidney. ? Bowel postoperative change with distal colon marilin and a right lower quadrant ileostomy. ? ? ? Additional findings:? Accessory splenule Normal appendix Fat containing left inguinal hernia ? ? ? Dictated by: Saman Finch M.D. on 01/16/2023 at 16:36 ? ? Approved by: Saman Finch M.D. on 01/16/2023 at 16:41?? Treatment and disposition Shared decision making:: Shared decision-making was used indeterminate patient's plan of care in the emergency department and plan for outpatient follow-up. MDM Narrative Medical decision making narrative: This is a complicated 42-year-old patient with history of ureteral vesicular fistula, abdominal abscess, right ureteral stent who still follows with urology who presents today with concern for left flank pain and hematuria. Labs returned largely unremarkable with exception of blood present in his urine, he is nontoxic-appearing and has unremarkable vitals, his CT KUB returned showing multiple small stone fragments at the distal left ureter, the largest being 3 mm. Patient is given Toradol, Flomax in the emergency department. With significant improvement in symptoms and reduction of pain to 0/10. Urology is consulted. Patient still follows with Dr. Garcia at [facility] and is due to have a follow-up in the next few weeks. Patient is provided with prescription for Flomax, advised to drink plenty of fluids, also prescription for stronger pain meds if needed, advised to follow up closely with Urology on Thursday of this week monitor carefully for signs of infection, return precautions provided, follow-up plan discussed, all questions answered. <Delicia Portillo, DO - Last Filed: 01/17/23 06:52> Lab Data Labs: Lab Results 01/16/23 01/16/23 01/16/23 Range/Units 17:00 17:00 17:00 WBC 10.3 (4.5-11.0) X10^3/uL RBC 4.26 L (4.5-5.9) X10^6/uL Hgb 12.5 L (13.5-17.5) g/dL Hct 37.0 L (41-53) % MCV 86.9 (80-100) fL MCH 29.4 (26-34) PG MCHC 33.8 (30-36) % RDW 15.6 H (11.6-14.8) % Plt Count 232 (150-400) X10^3/uL Neut % (Auto) 67.6 (50-75) % Lymph % (Auto) 16.5 L (25-40) % [place] % (Auto) 14.0 (3-14) % Eos % (Auto) 1.7 L (2-4) % Baso % (Auto) 0.2 (0-2) % Neut # (Auto) 7000 (7629-4260) /uL Lymph # (Auto) 1700 (8655-7645) /uL [place] # (Auto) 1400 H (0-900) /uL Eos # (Auto) 200 (0-450) /uL Baso # (Auto) 0 (0-100) /uL Sodium 135 L (137-145) mmol/L Potassium 3.8 (3.4-5.1) mmol/L Chloride 102 (98-107) mmol/L Carbon Dioxide 22 (22-32) mmol/L BUN 19 (9-20) mg/dL Creatinine 1.87 H (0.66-1.25) mg/dL Estimated GFR 46 L (>60) mL/min BUN/Creatinine Ratio 10.2 (6-22) Glucose 104 H (70-100) mg/dL Calcium 9.5 (8.4-10.2) mg/dL Total Bilirubin 0.6 (0.2-1.3) mg/dL AST 34 (17-59) IU/L ALT 35 (<50) IU/L Alkaline Phosphatase 74 (38-126) U/L Total Protein 9.0 H (6.3-8.2) g/dL Albumin 4.5 (3.5-5.0) g/dL Globulin 4.5 H (1.7-4.1) g/dL Albumin/Globulin Ratio 1.0 (1.0-2.8) Lipase 244 (23-300) U/L Urine Color Red Urine Appearance Cloudy Urine pH 5.5 (4.5-8.0) Ur Specific [place] 1.025 (1.000-1.035) Urine Protein 3+ H (Negative) Urine Glucose (UA) Negative (Negative) g/dL Urine Ketones Negative (NEGATIVE) Urine Occult Blood 3+ H (Negative) Urine Nitrate Negative (Negative) Urine Bilirubin 1+ H (NEGATIVE) Ur Bilirubin Confirm Negative (Negative) Urine Urobilinogen 0.2 (0.2) E.U./dL Ur Leukocyte Esterase Negative (NEGATIVE) Urine RBC >100/hpf H (0-5/HPF) Urine WBC 5-10/hpf H (0-5/HPF) Urine Bacteria None seen (None) Ur Culture Indicated? Specimen cultured Discharge Plan Departure Patient Disposition: Home Clinical Impression: Ureterolithiasis, Acute left flank pain Instructions: Kidney Stones -- Adult Activity Restrictions/Additional Instructions: *You have been diagnosed with kidney stones/ureterolithiasis on the left *What to do: *Please continue to take your regular medications as directed. [ 2] New medication prescriptions sent to your pharmacy: [Flomax (tamsulosin), hydrocodone] [ ] New medication written as a paper prescription [ ] No new medications given *Please follow up with your primary care provider in 2-3 days, call for an appointment. Let them know you were seen in the Emergency Department and that we ask that you be seen in follow up. We will electronically transmit a record of today's note if your PCP is in our system. I strongly recommend that you follow-up closely with your urologist I encourage you to call their office on Thursday to discuss the fact that you have these kidney stones with them. Your largest stone is 3 mm, they appear to be small stone fragments they were in your distal ureter at the time we did imaging in the emergency department and they will likely pass on their own without difficulty, you will need to take the Flomax medication daily for the next 7 days. I recommend Tylenol and if he could take it ibuprofen for pain however if this is not enough you can take the stronger pain medicine if absolutely necessary. *If you do not have a primary care provider please contact the [facility] Resource line at [phone]. They will ask some questions about your medical history and help get you set up with a doctor in the community. *Return to Emergency Department if you should have any new, worsening or concerning symptoms, such as [fever greater than 101 F, shaking chills, worsening pain, persistent vomiting or other bothersome symptoms] Prescriptions: New tamsulosin 0.4 mg capsule 0.4 mg PO DAILY 7 Days Qty: 7 0RF hydrocodone-acetaminophen 5-325 mg tablet 1 tab PO Q8H PRN (Reason: pain) 3 Days Qty: 8 0RF No Action cefdinir 300 mg capsule 300 mg PO BID Qty: 20 0RF metronidazole 500 mg tablet 500 mg PO TID Qty: 30 0RF ciprofloxacin HCl [Cipro] 500 mg tablet 500 mg PO BID Qty: 14 0RF Stand Alone Forms: Patient Portal/API <Delicia Portillo DO - Last Filed: 01/17/23 06:52> Cosign ED Attending [place] Attestation: I was immediately available in the department for consultation. Documentation has been reviewed.
[2023-01-16] MEDS: KETOROLAC 30 MG/ML VIAL 15 MG IV (19:20)
[2023-01-16] MEDS: TAMSULOSIN 0.4 MG CAPSULE PO (19:50)
== END 2023-01-16 21:10 | disposition home or self-care (01) ==
PROVIDERS: Emergency Medicine; Emergency Provider Student in an Organized Health Care Education/Training Program
DX: N20.1 Calculus of ureter (principal); R31.9 Hematuria, unspecified; R10.9 Unspecified abdominal pain
CPT/HCPCS: 36415; 74176; 80053; 81001; 83690; 85025; 87077; 87086; 87186; 96374; 99284; J1885